=== PATIENT | female | born 1940 | race African-American/Black ===

== ENCOUNTER 2022-09-17 17:17 | Inpatient (IN) | payer MEDICARE, BC ==
[~2022-09-17] VITALS: Ht 137.2 cm; Wt 70.8 kg
[2022-09-17] VITALS (11 sets, daily range): BP systolic 117–164; BP diastolic 55–136
[2022-09-17] MEDS ORDERED: PANTOPRAZOLE SODIUM 40 MG/VIAL IV ONE (17:45)
[2022-09-17] MEDS ORDERED: ONDANSETRON HCL 4MG/2ML INJ IV ONE (17:45)
[2022-09-17] MEDS ORDERED: SODIUM CHLORIDE 0.9% 1,000 ML IV ONE (18:15)
[2022-09-17] MEDS ORDERED: IOHEXOL-350 100 ML BOTTLE ONE (18:44)
[2022-09-17 18:47] LABS: BASOPHILS % 0.6 % (0.0-2.0); EOSINOPHILS % 2.3 % (0.0-5.0); HEMATOCRIT. 29.1 % (36.0-48.0); HEMOGLOBIN. 9.5 g/dL (12.0-16.0); LYMPHOCYTES % 31.5 % (20.0-50.0); MEAN CORPUSCULAR HEMOGLOBIN 29.9 pg (28.0-32.0); MEAN CORPUSCULAR VOLUME 91.4 fL (81.0-99.0); MEAN PLATELET VOLUME 8.5 fl (7.4-10.4); MONOCYTES % 7.2 % (2.0-8.0); NEUTROPHILS % 58.4 % (40.0-76.0); PLATELET 141 x1000/uL (130-400); RED BLOOD CELL COUNT 3.19 mill/uL (4.2-5.4); RED CELL DISTRIBUTION WIDTH 14.7 % (11.6-14.6)
[2022-09-17 18:55] LABS: PROTHROMBIN TIME 10.8 sec (9.6-11.0)
[2022-09-17 18:56] LABS: CHLORIDE 111 mEq/L (98-107)
[2022-09-17 19:12] LABS: CREATINE KINASE 126 IU/L (26-192); ETHANOL BLOOD < 10 mg/dL
[2022-09-17] MEDS ORDERED: MANNITOL 20% (20GM/100ML) BAG 500ML PREMIX IV ONE (19:15)
[2022-09-17] MEDS ORDERED: LEVETIRACETAM 500 MG in SODIUM CHLORIDE 0.9% 100 ML IV SCH (19:15)
[2022-09-17] MEDS ORDERED: NICARDIPINE 100 MG in SODIUM CHLORIDE 0.9% 60 ML IV PRN (19:15)
[2022-09-17] MEDS: LEVETIRACETAM 500MG PREMIX 100 ML IV SCH (19:57)
[2022-09-17] MEDS ORDERED: MANNITOL 20% 200 ML IV NR (20:30)
[2022-09-17] MEDS ORDERED: ACETAMINOPHEN 650MG SUPP PR PRN ×2 (21:00)
[2022-09-17] MEDS ORDERED: IPRATROPIUM/ALBUTEROL 0.5-3(2.5)MG/3ML NEB NEB SCH (21:00)
[2022-09-17] MEDS ORDERED: IPRATROPIUM/ALBUTEROL 0.5-3(2.5)MG/3ML NEB NEB PRN (21:00)
[2022-09-17] MEDS ORDERED: NALOXONE HCL 0.4MG/ML VIAL IV PRN (21:15)
[2022-09-17] MEDS: NICARDIPINE 100 MG in SODIUM CHLORIDE 0.9% 60 ML IV PRN (22:30)
[2022-09-17] MEDS: DEXT 5%/LACTATED RINGERS 1,000 ML IV SCH (22:46)
[2022-09-17] MEDS: DEXAMETHASONE 4MG/ML 1ML VIAL IV SCH (23:14)
[2022-09-18] VITALS (78 sets, daily range): BP systolic 94–152; BP diastolic 28–84
[2022-09-18] MEDS: MORPHINE SULFATE 2 MG/ML CPJ (NOT FOR IM USE) IV PRN (02:02)
[2022-09-18 05:09] LABS: BASOPHILS % 0.1 % (0.0-2.0); CHLORIDE 101 mEq/L (98-107); HEMATOCRIT. 31.4 % (36.0-48.0); HEMOGLOBIN. 10.3 g/dL (12.0-16.0); LYMPHOCYTES % 9.7 % (20.0-50.0); MEAN CORPUSCULAR VOLUME 91.8 fL (81.0-99.0); MEAN PLATELET VOLUME 8.4 fl (7.4-10.4); MONOCYTES % 1.6 % (2.0-8.0); NEUTROPHILS % 88.6 % (40.0-76.0); PLATELET 144 x1000/uL (130-400); RED BLOOD CELL COUNT 3.42 mill/uL (4.2-5.4); RED CELL DISTRIBUTION WIDTH 14.4 % (11.6-14.6)
[2022-09-18 05:19] LABS: CREATINE KINASE 192 IU/L (26-192); HDL CHOLESTEROL 41 mg/dL (40-59); LDL CHOLESTEROL 105 mg/dL (5-100)
[2022-09-18] MEDS: DEXAMETHASONE 4MG/ML 1ML VIAL IV SCH ×3 (05:37→17:42)
[2022-09-18] MEDS ORDERED: POTASSIUM CHLORIDE INJ 40 MEQ in DEXT 5% WATER 250 ML IV ONE (07:15)
[2022-09-18] MEDS: KCL 20MEQ/100ML X 2 FOR TOTAL KCL 40MEQ/200ML IV SCH ×2 (09:27→12:13)
[2022-09-18] MEDS: LEVETIRACETAM 500MG PREMIX 100 ML IV SCH ×2 (09:27→20:23)
[2022-09-18] MEDS: DEXT 5%/LACTATED RINGERS 1,000 ML IV SCH (12:14)
[2022-09-19] VITALS (78 sets, daily range): BP systolic 120–164; BP diastolic 48–121
[2022-09-19] MEDS: DEXAMETHASONE 4MG/ML 1ML VIAL IV SCH ×4 (00:29→17:55)
[2022-09-19 05:09] LABS: CANCER ANTIGEN 125 10.3 U/mL (0.0-38.1)
[2022-09-19 05:15] LABS: BASOPHILS % 0.1 % (0.0-2.0); HEMATOCRIT. 30.2 % (36.0-48.0); HEMOGLOBIN. 9.9 g/dL (12.0-16.0); LYMPHOCYTES % 12.9 % (20.0-50.0); MEAN CORPUSCULAR HEMOGLOBIN 30.1 pg (28.0-32.0); MEAN CORPUSCULAR VOLUME 91.9 fL (81.0-99.0); MEAN PLATELET VOLUME 8.3 fl (7.4-10.4); MONOCYTES % 3.7 % (2.0-8.0); NEUTROPHILS % 83.3 % (40.0-76.0); PLATELET 135 x1000/uL (130-400); RED BLOOD CELL COUNT 3.29 mill/uL (4.2-5.4); RED CELL DISTRIBUTION WIDTH 14.3 % (11.6-14.6)
[2022-09-19 05:32] LABS: CHLORIDE 107 mEq/L (98-107)
[2022-09-19] MEDS: DEXT 5%/LACTATED RINGERS 1,000 ML IV SCH ×2 (06:55→21:23)
[2022-09-19] MEDS: LEVETIRACETAM 500MG PREMIX 100 ML IV SCH ×2 (08:12→21:23)
[2022-09-19] MEDS ORDERED: LOSA100T32 PO (09:43)
[2022-09-19] MEDS ORDERED: CARV25TA47 PO (09:43)
[2022-09-19] MEDS ORDERED: LEVO100T MT (09:43)
[2022-09-19] MEDS ORDERED: HYDR25TA PO (09:43)
[2022-09-19] MEDS ORDERED: HYDR100T26 PO (09:43)
[2022-09-19] MEDS ORDERED: ASPI-986 MT (09:43)
[2022-09-19] MEDS ORDERED: ATOR10TA69 PO (09:43)
[2022-09-19] MEDS: HYDRALAZINE 20MG/ML VIAL IV PRN (15:13)
[2022-09-19] MEDS: NICARDIPINE 100 MG in SODIUM CHLORIDE 0.9% 60 ML IV PRN (17:56)
[2022-09-19] MEDS: ATORVASTATIN CALCIUM 10MG TABLET PO SCH (20:07)
[2022-09-19] MEDS: ONDANSETRON HCL 4MG/2ML INJ IV PRN (21:23)
[2022-09-20] VITALS (79 sets, daily range): BP systolic 104–150; BP diastolic 34–109
[2022-09-20 05:17] LABS: CHLORIDE 110 mEq/L (98-107)
[2022-09-20 05:21] LABS: BASOPHILS % 0.1 % (0.0-2.0); HEMATOCRIT. 32.9 % (36.0-48.0); HEMOGLOBIN. 10.7 g/dL (12.0-16.0); LYMPHOCYTES % 9.2 % (20.0-50.0); MEAN CORPUSCULAR HEMOGLOBIN 29.7 pg (28.0-32.0); MEAN CORPUSCULAR VOLUME 91.5 fL (81.0-99.0); MONOCYTES % 5.4 % (2.0-8.0); NEUTROPHILS % 85.3 % (40.0-76.0); RED BLOOD CELL COUNT 3.59 mill/uL (4.2-5.4); RED CELL DISTRIBUTION WIDTH 14.6 % (11.6-14.6)
[2022-09-20] MEDS: DEXAMETHASONE 4MG/ML 1ML VIAL IV SCH ×5 (06:29→23:24)
[2022-09-20 07:12] LABS: MEAN PLATELET VOLUME 8.9 fl (7.4-10.4); PLATELET 149 x1000/uL (130-400)
[2022-09-20] MEDS: LEVETIRACETAM 500MG PREMIX 100 ML IV SCH ×2 (08:03→20:23)
[2022-09-20] MEDS: AMLODIPINE 5MG TABLET PO SCH (12:30)
[2022-09-20] MEDS ORDERED: MAGNESIUM 2 G PREMIX 50 ML IV NR (14:00)
[2022-09-20] MEDS: HYDRALAZINE 20MG/ML VIAL IV PRN (17:17)
[2022-09-20] MEDS: ATORVASTATIN CALCIUM 10MG TABLET PO SCH (20:23)
[2022-09-21] VITALS (77 sets, daily range): BP systolic 117–164; BP diastolic 39–94
[2022-09-21] MEDS: HYDRALAZINE 20MG/ML VIAL IV PRN ×2 (00:16→23:25)
[2022-09-21] MEDS: DEXAMETHASONE 4MG/ML 1ML VIAL IV SCH ×4 (05:32→23:25)
[2022-09-21 05:46] LABS: HEMATOCRIT. 31.4 % (36.0-48.0); HEMOGLOBIN. 10.4 g/dL (12.0-16.0); MEAN CORPUSCULAR HEMOGLOBIN 30.2 pg (28.0-32.0); MEAN CORPUSCULAR VOLUME 90.9 fL (81.0-99.0); MEAN PLATELET VOLUME 8.5 fl (7.4-10.4); PLATELET 134 x1000/uL (130-400); RED BLOOD CELL COUNT 3.45 mill/uL (4.2-5.4); RED CELL DISTRIBUTION WIDTH 14.7 % (11.6-14.6)
[2022-09-21 05:58] LABS: CHLORIDE 109 mEq/L (98-107)
[2022-09-21 07:51] LABS: PLATELET ESTIMATE NORMAL
[2022-09-21] MEDS: LEVETIRACETAM 500MG PREMIX 100 ML IV SCH ×2 (08:24→20:19)
[2022-09-21] MEDS: AMLODIPINE 5MG TABLET PO SCH (08:24)
[2022-09-21] MEDS: ATORVASTATIN CALCIUM 10MG TABLET PO SCH (20:18)
[2022-09-22] VITALS (84 sets, daily range): BP systolic 105–167; BP diastolic 50–89
[2022-09-22] MEDS: NICARDIPINE 100 MG in SODIUM CHLORIDE 0.9% 60 ML IV PRN (04:33)
[2022-09-22 04:51] LABS: HEMATOCRIT. 31.9 % (36.0-48.0); HEMOGLOBIN. 10.6 g/dL (12.0-16.0); MEAN CORPUSCULAR HEMOGLOBIN 30.2 pg (28.0-32.0); MEAN CORPUSCULAR VOLUME 90.4 fL (81.0-99.0); MEAN PLATELET VOLUME 8.2 fl (7.4-10.4); MONOCYTES % 10.4 % (2.0-8.0); NEUTROPHILS % 79.6 % (40.0-76.0); PLATELET 131 x1000/uL (130-400); RED BLOOD CELL COUNT 3.53 mill/uL (4.2-5.4); RED CELL DISTRIBUTION WIDTH 14.8 % (11.6-14.6)
[2022-09-22 05:05] LABS: CHLORIDE 105 mEq/L (98-107)
[2022-09-22] MEDS: MORPHINE SULFATE 2 MG/ML CPJ (NOT FOR IM USE) IV PRN (05:09)
[2022-09-22] MEDS: DEXAMETHASONE 4MG/ML 1ML VIAL IV SCH ×3 (05:39→17:05)
[2022-09-22] MEDS: LEVETIRACETAM 500MG PREMIX 100 ML IV SCH ×2 (08:57→20:58)
[2022-09-22] MEDS: AMLODIPINE 5MG TABLET PO SCH ×2 (08:58→17:04)
[2022-09-22] MEDS ORDERED: HYDRALAZINE HCL 50MG TABLET PO NR (10:30)
[2022-09-22 11:56] LABS: AMYLASE 762 IU/L (25-115)
[2022-09-22] MEDS ORDERED: LOSARTAN POTASSIUM 50 MG TABLET PO NR (12:00)
[2022-09-22] MEDS ORDERED: HYDRALAZINE HCL 50MG TABLET PO SCH (14:00)
[2022-09-22] MEDS: HYDRALAZINE HCL 50MG TABLET PO SCH ×2 (14:13→21:13)
[2022-09-22] MEDS ORDERED: GADOTERATE MEGLUMINE 5 MMOL/10 ML VIAL IV ONE (17:33)
[2022-09-22 19:23] LABS: T4 FREE 0.65 ng/dL (0.76-1.46)
[2022-09-22 20:10] LABS: FOLIC ACID (FOLATE) SERUM 18.2 ng/mL (>5.38)
[2022-09-22] MEDS: ATORVASTATIN CALCIUM 10MG TABLET PO SCH (20:58)
[2022-09-22] MEDS: LOSARTAN POTASSIUM 50 MG TABLET PO SCH (21:12)
[2022-09-23] VITALS (7 sets, daily range): BP systolic 120–143; BP diastolic 63–72
[2022-09-23] MEDS: DEXAMETHASONE 4MG/ML 1ML VIAL IV SCH ×4 (00:06→17:33)
[2022-09-23] MEDS: HYDRALAZINE 20MG/ML VIAL IV PRN (02:17)
[2022-09-23] MEDS: HYDRALAZINE HCL 50MG TABLET PO SCH ×3 (05:40→21:32)
[2022-09-23 07:13] LABS: BASOPHILS % 0.1 % (0.0-2.0); HEMATOCRIT. 33.1 % (36.0-48.0); HEMOGLOBIN. 10.9 g/dL (12.0-16.0); LYMPHOCYTES % 8.2 % (20.0-50.0); MEAN CORPUSCULAR HEMOGLOBIN 29.7 pg (28.0-32.0); MEAN CORPUSCULAR VOLUME 90.2 fL (81.0-99.0); MEAN PLATELET VOLUME 8.1 fl (7.4-10.4); MONOCYTES % 5.5 % (2.0-8.0); NEUTROPHILS % 86.2 % (40.0-76.0); PLATELET 136 x1000/uL (130-400); RED BLOOD CELL COUNT 3.67 mill/uL (4.2-5.4); RED CELL DISTRIBUTION WIDTH 14.6 % (11.6-14.6)
[2022-09-23 08:35] LABS: CHLORIDE 107 mEq/L (98-107)
[2022-09-23 08:58] LABS: AMYLASE 448 IU/L (25-115)
[2022-09-23] MEDS: LOSARTAN POTASSIUM 50 MG TABLET PO SCH ×2 (08:58→17:33)
[2022-09-23] MEDS: LEVETIRACETAM 500MG PREMIX 100 ML IV SCH ×2 (08:58→21:32)
[2022-09-23] MEDS: AMLODIPINE 5MG TABLET PO SCH ×2 (08:59→17:34)
[2022-09-23] MEDS: ONDANSETRON HCL 4MG/2ML INJ IV PRN (09:36)
[2022-09-23 15:29] LABS: HEPATITIS B SURFACE ANTIGEN NEGATIVE
[2022-09-23] MEDS: ATORVASTATIN CALCIUM 10MG TABLET PO SCH (21:32)
== END 2022-09-23 22:06 | DRG 64 ==
LOC: ER 17:25 → EDBD 17:25 → MICUSO 19:00 → EDBEDREQTM 19:02 → EDBEDREQ 19:02 → 7EST 09-22 21:55
PROVIDERS: ADMIT Family Medicine Adult Medicine; ATTEND Family Medicine Adult Medicine
PROC: 4A00X4Z Measurement of Central Nervous Electrical Activity, External Approach (ICD-10-PCS; principal; 2022-09-23)
DX: I61.0 Nontraumatic intracerebral hemorrhage in hemisphere, subcortical (principal); G92.8 Other toxic encephalopathy; R47.01 Aphasia; G47.33 Obstructive sleep apnea (adult) (pediatric); J45.909 Unspecified asthma, uncomplicated; K86.9 Disease of pancreas, unspecified; D72.829 Elevated white blood cell count, unspecified; E78.5 Hyperlipidemia, unspecified; E78.00 Pure hypercholesterolemia, unspecified; D64.9 Anemia, unspecified; R47.1 Dysarthria and anarthria; I12.9 Hypertensive chronic kidney disease with stage 1 through stage 4 chronic kidney disease, or unspecified chronic kidney disease; E11.22 Type 2 diabetes mellitus with diabetic chronic kidney disease; N18.9 Chronic kidney disease, unspecified; E66.9 Obesity, unspecified; E89.0 Postprocedural hypothyroidism; I25.10 Atherosclerotic heart disease of native coronary artery without angina pectoris; R13.10 Dysphagia, unspecified; Z96.653 Presence of artificial knee joint, bilateral; M19.90 Unspecified osteoarthritis, unspecified site; R16.0 Hepatomegaly, not elsewhere classified; Z68.37 Body mass index [BMI] 37.0-37.9, adult; Z86.73 Personal history of transient ischemic attack (TIA), and cerebral infarction without residual deficits; Z79.899 Other long term (current) drug therapy; Z99.2 Dependence on renal dialysis; Z82.49 Family history of ischemic heart disease and other diseases of the circulatory system
CPT/HCPCS: 36415; 70496; 70498; 71045; 74176; 74183; 76700; 80048; 80053; 80061; 80076; 80307; 80320; 80329; 82105; 82140; 82150; 82378; 82550; 82607; 82746; 82962; 83036; 83605; 83615; 83735; 83880; 84439; 84443; 84478; 84481; 84484; 85025; 86301; 86304; 86705; 86709; 86803; 86850; 86900; 87340; 92610; 93005; 93306; 97110; 97162; 97166; 97530; 99291; A9577; C9113; J0360; J1100; J1953; J2270; J2405; J3475; J3480; J3490; J7030; J7050; Q9967; A4315; G0480

== ENCOUNTER 2022-11-20 19:28 | Inpatient (IN) | payer MEDICARE, BC, OTHER ==
[~2022-11-20] VITALS: Ht 137.2 cm; Wt 68.0 kg
[~2022-11-20 19:28] MED LIST: ATOR10TA69 PO; HYDR25TA PO
[2022-11-20 20:02] LABS: BASOPHILS % 0.5 % (0.0-2.0); EOSINOPHILS % 3.9 % (0.0-5.0); HEMATOCRIT. 32.4 % (36.0-48.0); HEMOGLOBIN. 10.5 g/dL (12.0-16.0); LYMPHOCYTES % 36.8 % (20.0-50.0); MEAN CORPUSCULAR VOLUME 88.9 fL (81.0-99.0); MEAN PLATELET VOLUME 7.5 fl (7.4-10.4); MONOCYTES % 7.4 % (2.0-8.0); NEUTROPHILS % 51.4 % (40.0-76.0); PLATELET 198 x1000/uL (130-400); RED BLOOD CELL COUNT 3.64 mill/uL (4.2-5.4); RED CELL DISTRIBUTION WIDTH 15.3 % (11.6-14.6)
[2022-11-20 20:10] LABS: PROTHROMBIN TIME 10.9 sec (9.6-11.0)
[2022-11-20 20:11] LABS: CHLORIDE 110 mEq/L (98-107)
[2022-11-20] MEDS ORDERED: THROAT LOZENGES-BENZOCAINE/MENTH/CETYLPYRD CL LOZENGES MM PRN (20:15)
[2022-11-20 20:18] LABS: ETHANOL BLOOD < 10 mg/dL
[2022-11-20] MEDS ORDERED: ASPIRIN 325MG TABLET PO ONE (21:30)
[2022-11-20 23:40] VITALS: BP_SYST 169; BP_DIAS 92; BP_DIAS 98
[2022-11-21] MEDS ORDERED: CLONIDINE 0.1MG TABLET PO PRN (03:45)
[2022-11-21] MEDS ORDERED: HYDROCODONE/ACETAMINOPHEN 5/325MG TABLET PO PRN (03:45)
[2022-11-21 04:00] VITALS: BP 149/68
[2022-11-21] MEDS ORDERED: LEVO125T8 PO (04:29)
[2022-11-21] MEDS ORDERED: MAGN400T29 PO (04:29)
[2022-11-21] MEDS ORDERED: FAMO-135 PO (04:29)
[2022-11-21] MEDS ORDERED: KEPP250 MT (04:29)
[2022-11-21] MEDS ORDERED: LOSA25TA26 PO (04:29)
[2022-11-21] MEDS ORDERED: ASPI-1073 PO (04:29)
[2022-11-21] MEDS ORDERED: DOCU-138 PO (04:29)
[2022-11-21] MEDS ORDERED: FERR-71 MT (04:29)
[2022-11-21] MEDS ORDERED: ATEN-42 PO (04:29)
[2022-11-21] MEDS ORDERED: NALOXONE HCL 0.4MG/ML VIAL IV PRN (07:30)
[2022-11-21 08:00] VITALS: BP 164/78
[2022-11-21] MEDS ORDERED: ENOXAPARIN 40MG/0.4ML SYR SUBCUT SCH (08:00)
[2022-11-21 09:28] LABS: HEMATOCRIT 31.9 % (36.0-48.0); HEMOGLOBIN 10.6 g/dL (12.0-16.0); MEAN CORPUSCULAR HEMOGLOBIN 28.7 pg (28.0-32.0); MEAN CORPUSCULAR VOLUME 86.8 fL (81.0-99.0); PLATELET 190 x1000/uL (130-400); RED BLOOD CELL COUNT 3.68 mill/uL (4.2-5.4); RED CELL DISTRIBUTION WIDTH 14.7 % (11.6-14.6)
[2022-11-21] MEDS: FAMOTIDINE 20MG TABLET PO SCH (09:35)
[2022-11-21] MEDS: ASPIRIN 81MG TABLET PO SCH (09:35)
[2022-11-21] MEDS: HYDROCHLOROTHIAZIDE 25MG TABLET PO SCH (09:35)
[2022-11-21] MEDS: FERROUS SULFATE 325MG TABLET PO SCH ×2 (09:35→16:58)
[2022-11-21] MEDS: DOCUSATE SODIUM 100MG CAPSULE PO SCH ×2 (09:35→16:58)
[2022-11-21] MEDS: LEVOTHYROXINE SODIUM 125MCG TABLET PO SCH (09:35)
[2022-11-21] MEDS: LOSARTAN POTASSIUM 25 MG TABLET PO SCH (09:35)
[2022-11-21] MEDS: MAGNESIUM OXIDE 400MG TABLET PO SCH (09:36)
[2022-11-21] MEDS: LEVETIRACETAM 250MG TABLET PO SCH ×2 (09:36→22:04)
[2022-11-21] MEDS: ATENOLOL 25MG TABLET PO SCH (09:38)
[2022-11-21 09:41] LABS: CHLORIDE 107 mEq/L (98-107)
[2022-11-21 12:00] VITALS: BP 153/71
[2022-11-21] MEDS ORDERED: IOHEXOL-350 100 ML BOTTLE ONE (16:23)
[2022-11-21] MEDS: ENOXAPARIN 60MG/0.6ML SYR SUBCUT SCH ×2 (16:59→22:06)
[2022-11-21 20:00] VITALS: BP 149/70
[2022-11-21] MEDS: ATORVASTATIN CALCIUM 10MG TABLET PO SCH (22:04)
[2022-11-22] VITALS: BP 128/81
[2022-11-22 04:00] VITALS: BP 152/66
[2022-11-22] MEDS: LEVOTHYROXINE SODIUM 125MCG TABLET PO SCH (05:41)
[2022-11-22 08:00] VITALS: BP 163/73
[2022-11-22 08:09] LABS: BASOPHILS % 0.6 % (0.0-2.0); EOSINOPHILS % 4.1 % (0.0-5.0); HEMATOCRIT. 34.8 % (36.0-48.0); HEMOGLOBIN. 11.5 g/dL (12.0-16.0); LYMPHOCYTES % 35.6 % (20.0-50.0); MEAN CORPUSCULAR HEMOGLOBIN 28.8 pg (28.0-32.0); MEAN CORPUSCULAR VOLUME 86.9 fL (81.0-99.0); MEAN PLATELET VOLUME 7.9 fl (7.4-10.4); MONOCYTES % 8.5 % (2.0-8.0); NEUTROPHILS % 51.2 % (40.0-76.0); PLATELET 189 x1000/uL (130-400); RED CELL DISTRIBUTION WIDTH 14.9 % (11.6-14.6)
[2022-11-22] MEDS: ATENOLOL 25MG TABLET PO SCH (09:27)
[2022-11-22] MEDS: FERROUS SULFATE 325MG TABLET PO SCH ×2 (09:27→17:59)
[2022-11-22] MEDS: DOCUSATE SODIUM 100MG CAPSULE PO SCH ×2 (09:27→17:59)
[2022-11-22] MEDS: FAMOTIDINE 20MG TABLET PO SCH (09:27)
[2022-11-22] MEDS: LOSARTAN POTASSIUM 25 MG TABLET PO SCH (09:27)
[2022-11-22] MEDS: ASPIRIN 81MG TABLET PO SCH (09:28)
[2022-11-22] MEDS: HYDROCHLOROTHIAZIDE 25MG TABLET PO SCH (09:28)
[2022-11-22] MEDS: MAGNESIUM OXIDE 400MG TABLET PO SCH (09:29)
[2022-11-22] MEDS: LEVETIRACETAM 250MG TABLET PO SCH ×2 (09:31→22:12)
[2022-11-22 09:36] LABS: CHLORIDE 103 mEq/L (98-107)
[2022-11-22] MEDS: ENOXAPARIN 60MG/0.6ML SYR SUBCUT SCH (11:49)
[2022-11-22 12:00] VITALS: BP 170/71
[2022-11-22 16:00] VITALS: BP 117/57
[2022-11-22 20:00] VITALS: BP 152/79
[2022-11-22] MEDS: ATORVASTATIN CALCIUM 10MG TABLET PO SCH (22:12)
[2022-11-22] MEDS: ENOXAPARIN 80MG/0.8ML SYR SUBCUT SCH (22:12)
[2022-11-23] VITALS: BP 129/88
[2022-11-23 04:00] VITALS: BP 148/60
[2022-11-23 06:34] LABS: BASOPHILS % 0.8 % (0.0-2.0); EOSINOPHILS % 4.7 % (0.0-5.0); HEMATOCRIT. 31.6 % (36.0-48.0); HEMOGLOBIN. 10.6 g/dL (12.0-16.0); LYMPHOCYTES % 39.7 % (20.0-50.0); MEAN CORPUSCULAR HEMOGLOBIN 28.7 pg (28.0-32.0); MEAN CORPUSCULAR VOLUME 85.8 fL (81.0-99.0); MEAN PLATELET VOLUME 8.1 fl (7.4-10.4); MONOCYTES % 7.7 % (2.0-8.0); NEUTROPHILS % 47.1 % (40.0-76.0); PLATELET 189 x1000/uL (130-400); RED BLOOD CELL COUNT 3.68 mill/uL (4.2-5.4)
[2022-11-23] MEDS: LEVOTHYROXINE SODIUM 125MCG TABLET PO SCH (06:47)
[2022-11-23 07:06] LABS: CHLORIDE 102 mEq/L (98-107)
[2022-11-23 08:00] VITALS: BP 169/79
[2022-11-23] MEDS: LOSARTAN POTASSIUM 25 MG TABLET PO SCH (08:23)
[2022-11-23] MEDS: FERROUS SULFATE 325MG TABLET PO SCH ×2 (08:23→18:16)
[2022-11-23] MEDS: ASPIRIN 81MG TABLET PO SCH (08:23)
[2022-11-23] MEDS: HYDROCHLOROTHIAZIDE 25MG TABLET PO SCH (08:23)
[2022-11-23] MEDS: DOCUSATE SODIUM 100MG CAPSULE PO SCH ×2 (08:23→18:16)
[2022-11-23] MEDS: LEVETIRACETAM 250MG TABLET PO SCH ×2 (08:23→21:59)
[2022-11-23] MEDS: MAGNESIUM OXIDE 400MG TABLET PO SCH (08:24)
[2022-11-23] MEDS: ATENOLOL 25MG TABLET PO SCH (08:29)
[2022-11-23] MEDS: FAMOTIDINE 20MG TABLET PO SCH (08:29)
[2022-11-23] MEDS: ENOXAPARIN 80MG/0.8ML SYR SUBCUT SCH ×2 (08:30→21:59)
[2022-11-23] MEDS ORDERED: POTASSIUM CHLORIDE 20MEQ TABLET SR PO NR (09:15)
[2022-11-23] MEDS ORDERED: COLCHICINE 0.6MG TABLET PO NR (11:30)
[2022-11-23 12:00] VITALS: BP 127/58
[2022-11-23 16:00] VITALS: BP 131/65
[2022-11-23] MEDS: COLCHICINE 0.6MG TABLET PO SCH (18:16)
[2022-11-23 20:00] VITALS: BP 149/69
[2022-11-23] MEDS: ATORVASTATIN CALCIUM 10MG TABLET PO SCH (21:59)
[2022-11-24] VITALS: BP_SYST 124; BP_SYST 126; BP_DIAS 76
[2022-11-24 04:00] VITALS: BP 158/79
[2022-11-24 05:49] LABS: BASOPHILS % 0.7 % (0.0-2.0); EOSINOPHILS % 4.6 % (0.0-5.0); HEMATOCRIT. 34.7 % (36.0-48.0); HEMOGLOBIN. 11.7 g/dL (12.0-16.0); LYMPHOCYTES % 40.8 % (20.0-50.0); MEAN CORPUSCULAR HEMOGLOBIN 28.9 pg (28.0-32.0); MEAN CORPUSCULAR VOLUME 86.2 fL (81.0-99.0); MEAN PLATELET VOLUME 8.3 fl (7.4-10.4); MONOCYTES % 8.5 % (2.0-8.0); NEUTROPHILS % 45.4 % (40.0-76.0); PLATELET 206 x1000/uL (130-400); RED BLOOD CELL COUNT 4.03 mill/uL (4.2-5.4); RED CELL DISTRIBUTION WIDTH 14.7 % (11.6-14.6)
[2022-11-24] MEDS: LEVOTHYROXINE SODIUM 125MCG TABLET PO SCH (06:03)
[2022-11-24 07:29] LABS: CHLORIDE 103 mEq/L (98-107)
[2022-11-24 08:00] VITALS: BP 128/70
[2022-11-24] MEDS: LEVETIRACETAM 250MG TABLET PO SCH ×2 (10:00→21:31)
[2022-11-24] MEDS: FERROUS SULFATE 325MG TABLET PO SCH ×2 (10:00→17:44)
[2022-11-24] MEDS: ENOXAPARIN 80MG/0.8ML SYR SUBCUT SCH ×2 (10:00→21:31)
[2022-11-24] MEDS: DOCUSATE SODIUM 100MG CAPSULE PO SCH ×2 (10:01→17:44)
[2022-11-24] MEDS: LOSARTAN POTASSIUM 50 MG TABLET PO SCH (10:01)
[2022-11-24] MEDS: ASPIRIN 81MG TABLET PO SCH (10:02)
[2022-11-24] MEDS: MAGNESIUM OXIDE 400MG TABLET PO SCH (10:03)
[2022-11-24] MEDS: FAMOTIDINE 20MG TABLET PO SCH (10:03)
[2022-11-24] MEDS: COLCHICINE 0.6MG TABLET PO SCH (10:03)
[2022-11-24] MEDS: HYDROCHLOROTHIAZIDE 25MG TABLET PO SCH (10:06)
[2022-11-24 12:00] VITALS: BP 140/75
[2022-11-24 16:00] VITALS: BP 123/86
[2022-11-24 20:00] VITALS: BP 132/75
[2022-11-24] MEDS: ATORVASTATIN CALCIUM 10MG TABLET PO SCH (21:31)
[2022-11-25] VITALS: BP 136/77
[2022-11-25 04:00] VITALS: BP 120/58
[2022-11-25] MEDS: LEVOTHYROXINE SODIUM 125MCG TABLET PO SCH (06:26)
[2022-11-25 06:31] LABS: BASOPHILS % 0.7 % (0.0-2.0); EOSINOPHILS % 3.4 % (0.0-5.0); HEMATOCRIT. 34.6 % (36.0-48.0); HEMOGLOBIN. 11.5 g/dL (12.0-16.0); LYMPHOCYTES % 42.7 % (20.0-50.0); MEAN CORPUSCULAR HEMOGLOBIN 28.7 pg (28.0-32.0); MEAN CORPUSCULAR VOLUME 86.4 fL (81.0-99.0); MEAN PLATELET VOLUME 8.1 fl (7.4-10.4); MONOCYTES % 8.2 % (2.0-8.0); PLATELET 211 x1000/uL (130-400); RED BLOOD CELL COUNT 4.01 mill/uL (4.2-5.4); RED CELL DISTRIBUTION WIDTH 14.8 % (11.6-14.6)
[2022-11-25 07:08] LABS: CHLORIDE 105 mEq/L (98-107)
[2022-11-25 08:00] VITALS: BP 140/73
[2022-11-25] MEDS: ENOXAPARIN 80MG/0.8ML SYR SUBCUT SCH ×2 (09:05→20:53)
[2022-11-25] MEDS: LOSARTAN POTASSIUM 50 MG TABLET PO SCH (09:07)
[2022-11-25] MEDS: HYDROCHLOROTHIAZIDE 25MG TABLET PO SCH (09:07)
[2022-11-25] MEDS: FAMOTIDINE 20MG TABLET PO SCH (09:07)
[2022-11-25] MEDS: COLCHICINE 0.6MG TABLET PO SCH (09:07)
[2022-11-25] MEDS: DOCUSATE SODIUM 100MG CAPSULE PO SCH ×2 (09:07→17:31)
[2022-11-25] MEDS: FERROUS SULFATE 325MG TABLET PO SCH ×2 (09:07→17:31)
[2022-11-25] MEDS: LEVETIRACETAM 250MG TABLET PO SCH ×2 (09:08→20:53)
[2022-11-25] MEDS: ASPIRIN 81MG TABLET PO SCH (09:08)
[2022-11-25] MEDS: MAGNESIUM OXIDE 400MG TABLET PO SCH (09:08)
[2022-11-25] MEDS ORDERED: POTASSIUM CHLORIDE 20MEQ/PACKET PO NR (10:30)
[2022-11-25 12:00] VITALS: BP 126/75
[2022-11-25 16:00] VITALS: BP 121/77
[2022-11-25 20:00] VITALS: BP 134/77
[2022-11-25] MEDS: ATORVASTATIN CALCIUM 10MG TABLET PO SCH (20:53)
[2022-11-26] VITALS: BP 109/70
[2022-11-26 04:00] VITALS: BP 131/72
[2022-11-26 05:08] LABS: CANCER ANTIGEN 125 12.9 U/mL (0.0-38.1)
[2022-11-26 05:34] LABS: BASOPHILS % 0.6 % (0.0-2.0); EOSINOPHILS % 3.8 % (0.0-5.0); HEMATOCRIT. 34.6 % (36.0-48.0); HEMOGLOBIN. 11.2 g/dL (12.0-16.0); LYMPHOCYTES % 42.8 % (20.0-50.0); MEAN CORPUSCULAR HEMOGLOBIN 28.4 pg (28.0-32.0); MEAN CORPUSCULAR VOLUME 87.5 fL (81.0-99.0); MONOCYTES % 9.9 % (2.0-8.0); NEUTROPHILS % 42.9 % (40.0-76.0); PLATELET 208 x1000/uL (130-400); RED BLOOD CELL COUNT 3.96 mill/uL (4.2-5.4); RED CELL DISTRIBUTION WIDTH 15.1 % (11.6-14.6)
[2022-11-26] MEDS: LEVOTHYROXINE SODIUM 125MCG TABLET PO SCH (05:43)
[2022-11-26 05:45] LABS: CHLORIDE 105 mEq/L (98-107)
[2022-11-26 08:00] VITALS: BP 106/82
[2022-11-26] MEDS: MAGNESIUM OXIDE 400MG TABLET PO SCH (09:00)
[2022-11-26] MEDS: LOSARTAN POTASSIUM 50 MG TABLET PO SCH (09:00)
[2022-11-26 12:00] VITALS: BP 112/63
[2022-11-26] MEDS: ENOXAPARIN 80MG/0.8ML SYR SUBCUT SCH ×2 (12:35→22:32)
[2022-11-26] MEDS: COLCHICINE 0.6MG TABLET PO SCH (12:35)
[2022-11-26] MEDS: FERROUS SULFATE 325MG TABLET PO SCH ×2 (12:35→17:00)
[2022-11-26] MEDS: HYDROCHLOROTHIAZIDE 25MG TABLET PO SCH (12:35)
[2022-11-26] MEDS: LEVETIRACETAM 250MG TABLET PO SCH (12:35)
[2022-11-26] MEDS: DOCUSATE SODIUM 100MG CAPSULE PO SCH ×2 (12:35→17:00)
[2022-11-26] MEDS: ASPIRIN 81MG TABLET PO SCH (12:36)
[2022-11-26] MEDS: FAMOTIDINE 20MG TABLET PO SCH (12:36)
[2022-11-26] MEDS: DEXT 5%/0.9% NACL 1,000 ML IV SCH (14:38)
[2022-11-26 16:00] VITALS: BP 110/72
[2022-11-26 20:00] VITALS: BP 122/65
[2022-11-26] MEDS ORDERED: HYDRALAZINE 20MG/ML VIAL IV PRN (20:45)
[2022-11-26] MEDS ORDERED: LEVETIRACETAM 500MG/5ML CUP PO SCH (21:00)
[2022-11-26] MEDS: ATORVASTATIN CALCIUM 10MG TABLET PO SCH (21:00)
[2022-11-26] MEDS: LEVETIRACETAM 250MG in SODIUM CHLORIDE 0.9% 100ML IV SCH (22:30)
[2022-11-27] VITALS: BP 109/70
[2022-11-27 04:00] VITALS: BP 141/84
[2022-11-27 06:18] LABS: PROTHROMBIN TIME 11.2 sec (9.6-11.0)
[2022-11-27 06:27] LABS: BASOPHILS % 0.8 % (0.0-2.0); EOSINOPHILS % 3.6 % (0.0-5.0); HEMATOCRIT. 32.8 % (36.0-48.0); HEMOGLOBIN. 10.8 g/dL (12.0-16.0); MEAN CORPUSCULAR HEMOGLOBIN 28.4 pg (28.0-32.0); MEAN CORPUSCULAR VOLUME 86.6 fL (81.0-99.0); MEAN PLATELET VOLUME 8.2 fl (7.4-10.4); MONOCYTES % 9.2 % (2.0-8.0); NEUTROPHILS % 39.4 % (40.0-76.0); PLATELET 214 x1000/uL (130-400); RED BLOOD CELL COUNT 3.78 mill/uL (4.2-5.4); RED CELL DISTRIBUTION WIDTH 15.1 % (11.6-14.6)
[2022-11-27] MEDS: DEXT 5%/0.9% NACL 1,000 ML IV SCH ×2 (06:44→23:28)
[2022-11-27 07:30] LABS: CHLORIDE 109 mEq/L (98-107)
[2022-11-27 08:00] VITALS: BP 140/61
[2022-11-27] MEDS: HYDROCHLOROTHIAZIDE 25MG TABLET PO SCH (09:00)
[2022-11-27] MEDS: MAGNESIUM OXIDE 400MG TABLET PO SCH (09:00)
[2022-11-27] MEDS: FERROUS SULFATE 325MG TABLET PO SCH ×2 (09:00→16:50)
[2022-11-27] MEDS: DOCUSATE SODIUM 100MG CAPSULE PO SCH ×2 (09:00→16:50)
[2022-11-27] MEDS: COLCHICINE 0.6MG TABLET PO SCH (09:00)
[2022-11-27] MEDS: LOSARTAN POTASSIUM 50 MG TABLET PO SCH (09:00)
[2022-11-27] MEDS: LEVETIRACETAM 250MG in SODIUM CHLORIDE 0.9% 100ML IV SCH ×2 (09:29→20:54)
[2022-11-27] MEDS: ENOXAPARIN 80MG/0.8ML SYR SUBCUT SCH (09:30)
[2022-11-27] MEDS: FAMOTIDINE 20MG/2ML VIAL IV SCH (09:30)
[2022-11-27] MEDS: LEVOTHYROXINE SODIUM 100 MCG/ VIAL IV SCH (11:25)
[2022-11-27 12:00] VITALS: BP 134/80
[2022-11-27] MEDS ORDERED: KCL 20MEQ/100ML PREMIX 100 ML IV NR (12:30)
[2022-11-27 16:00] VITALS: BP 137/59
[2022-11-27 20:00] VITALS: BP 115/85
[2022-11-27] MEDS: ATORVASTATIN CALCIUM 10MG TABLET PO SCH (20:01)
[2022-11-28] VITALS: BP 139/65
[2022-11-28 04:00] VITALS: BP 136/67
[2022-11-28 06:43] LABS: PROTHROMBIN TIME 10.6 sec (9.6-11.0)
[2022-11-28 06:44] LABS: BASOPHILS % 0.7 % (0.0-2.0); EOSINOPHILS % 5.1 % (0.0-5.0); HEMATOCRIT. 35.3 % (36.0-48.0); HEMOGLOBIN. 11.1 g/dL (12.0-16.0); LYMPHOCYTES % 42.7 % (20.0-50.0); MEAN CORPUSCULAR HEMOGLOBIN 28.5 pg (28.0-32.0); MONOCYTES % 9.2 % (2.0-8.0); NEUTROPHILS % 42.3 % (40.0-76.0); PLATELET 207 x1000/uL (130-400); RED BLOOD CELL COUNT 3.92 mill/uL (4.2-5.4); RED CELL DISTRIBUTION WIDTH 15.1 % (11.6-14.6)
[2022-11-28 06:53] LABS: CHLORIDE 115 mEq/L (98-107)
[2022-11-28 08:00] VITALS: BP 152/95
[2022-11-28] MEDS: LEVOTHYROXINE SODIUM 100 MCG/ VIAL IV SCH (08:37)
[2022-11-28] MEDS: FAMOTIDINE 20MG/2ML VIAL IV SCH (08:37)
[2022-11-28] MEDS: LEVETIRACETAM 250MG in SODIUM CHLORIDE 0.9% 100ML IV SCH ×2 (08:37→21:22)
[2022-11-28] MEDS: DOCUSATE SODIUM 100MG CAPSULE PO SCH ×2 (08:55→16:34)
[2022-11-28] MEDS: HYDROCHLOROTHIAZIDE 25MG TABLET PO SCH (08:55)
[2022-11-28] MEDS: COLCHICINE 0.6MG TABLET PO SCH (08:55)
[2022-11-28] MEDS: LOSARTAN POTASSIUM 50 MG TABLET PO SCH (08:55)
[2022-11-28] MEDS: FERROUS SULFATE 325MG TABLET PO SCH ×2 (08:56→16:34)
[2022-11-28] MEDS: MAGNESIUM OXIDE 400MG TABLET PO SCH (08:56)
[2022-11-28 12:00] VITALS: BP 150/83
[2022-11-28] MEDS ORDERED: CEFAZOLIN 1000MG PREMIX 50 ML IV SCH (12:00)
[2022-11-28] MEDS ORDERED: POTASSIUM CHLORIDE INJ 40 MEQ in DEXT 5% WATER 250 ML IV NR (12:00)
[2022-11-28] MEDS ORDERED: PROPOFOL 200MG/20ML VIAL IV ONE (13:59)
[2022-11-28] MEDS ORDERED: EPHEDRINE SULFATE 50MG/ML VIAL ONE (13:59)
[2022-11-28] MEDS ORDERED: SODIUM CHLORIDE 0.9% 10ML VIAL ONE (14:00)
[2022-11-28] MEDS ORDERED: PHENYLEPHRINE HCL 10 MG/ML 1ML (IV VIAL) IV ONE (14:00)
[2022-11-28] MEDS ORDERED: LIDOCAINE HCL 1% 10 MG/ML 10ML VIAL ONE (14:50)
[2022-11-28 16:00] VITALS: BP 142/73
[2022-11-28] MEDS: DEXT 5%/0.9% NACL 1,000 ML IV SCH (16:13)
[2022-11-28 20:00] VITALS: BP 172/73
[2022-11-28] MEDS: ATORVASTATIN CALCIUM 10MG TABLET PO SCH (21:15)
[2022-11-29] VITALS: BP 136/80
[2022-11-29 04:00] VITALS: BP 122/71
[2022-11-29 05:39] LABS: BASOPHILS % 0.4 % (0.0-2.0); EOSINOPHILS % 2.3 % (0.0-5.0); HEMATOCRIT. 33.3 % (36.0-48.0); HEMOGLOBIN. 10.9 g/dL (12.0-16.0); LYMPHOCYTES % 27.8 % (20.0-50.0); MEAN CORPUSCULAR HEMOGLOBIN 28.2 pg (28.0-32.0); MEAN PLATELET VOLUME 7.9 fl (7.4-10.4); MONOCYTES % 8.1 % (2.0-8.0); NEUTROPHILS % 61.4 % (40.0-76.0); PLATELET 205 x1000/uL (130-400); RED BLOOD CELL COUNT 3.87 mill/uL (4.2-5.4); RED CELL DISTRIBUTION WIDTH 14.8 % (11.6-14.6)
[2022-11-29 06:07] LABS: CHLORIDE 112 mEq/L (98-107)
[2022-11-29 08:00] VITALS: BP 130/82
[2022-11-29] MEDS: LEVOTHYROXINE SODIUM 100 MCG/ VIAL IV SCH (08:58)
[2022-11-29] MEDS: LEVETIRACETAM 250MG in SODIUM CHLORIDE 0.9% 100ML IV SCH (08:58)
[2022-11-29] MEDS: HYDROCHLOROTHIAZIDE 25MG TABLET PO SCH (08:59)
[2022-11-29] MEDS: COLCHICINE 0.6MG TABLET PO SCH (08:59)
[2022-11-29] MEDS: MAGNESIUM OXIDE 400MG TABLET PO SCH (08:59)
[2022-11-29] MEDS: DEXT 5%/0.9% NACL 1,000 ML IV SCH (08:59)
[2022-11-29] MEDS: DOCUSATE SODIUM 100MG CAPSULE PO SCH (09:00)
[2022-11-29] MEDS: ASPIRIN 81MG TABLET PO SCH ×2 (09:00→10:36)
[2022-11-29] MEDS: LOSARTAN POTASSIUM 50 MG TABLET PO SCH (09:06)
[2022-11-29] MEDS: FERROUS SULFATE 325MG TABLET PO SCH ×2 (09:06→16:21)
[2022-11-29] MEDS: DOCUSATE SODIUM SUGAR FREE 100MG/10ML UDC GT SCH (10:36)
[2022-11-29] MEDS: ENOXAPARIN 80MG/0.8ML SYR SUBCUT SCH ×2 (10:36→22:03)
[2022-11-29 12:00] VITALS: BP 142/81
[2022-11-29 16:00] VITALS: BP 142/77
[2022-11-29 20:00] VITALS: BP 121/64
[2022-11-29] MEDS: LEVETIRACETAM 500MG/5ML CUP GT SCH (22:02)
[2022-11-29] MEDS: ATORVASTATIN CALCIUM 10MG TABLET PO SCH (22:03)
[2022-11-30] VITALS: BP 128/72
[2022-11-30 04:00] VITALS: BP 135/60
[2022-11-30 06:50] LABS: BASOPHILS % 0.7 % (0.0-2.0); EOSINOPHILS % 4.2 % (0.0-5.0); HEMATOCRIT. 32.5 % (36.0-48.0); HEMOGLOBIN. 10.4 g/dL (12.0-16.0); LYMPHOCYTES % 38.4 % (20.0-50.0); MEAN CORPUSCULAR HEMOGLOBIN 29.1 pg (28.0-32.0); MEAN CORPUSCULAR VOLUME 90.5 fL (81.0-99.0); MEAN PLATELET VOLUME 8.2 fl (7.4-10.4); MONOCYTES % 9.4 % (2.0-8.0); NEUTROPHILS % 47.3 % (40.0-76.0); PLATELET 183 x1000/uL (130-400); RED BLOOD CELL COUNT 3.59 mill/uL (4.2-5.4); RED CELL DISTRIBUTION WIDTH 15.3 % (11.6-14.6)
[2022-11-30 06:59] LABS: CHLORIDE 111 mEq/L (98-107)
[2022-11-30 08:00] VITALS: BP 147/71
[2022-11-30] MEDS: ASPIRIN 81MG TABLET PO SCH (08:33)
[2022-11-30] MEDS: LEVETIRACETAM 500MG/5ML CUP GT SCH ×2 (08:33→21:37)
[2022-11-30] MEDS: DOCUSATE SODIUM SUGAR FREE 100MG/10ML UDC GT SCH (08:33)
[2022-11-30] MEDS: FERROUS SULFATE 325MG TABLET PO SCH ×2 (08:33→16:51)
[2022-11-30] MEDS: COLCHICINE 0.6MG TABLET PO SCH (08:33)
[2022-11-30] MEDS: ENOXAPARIN 80MG/0.8ML SYR SUBCUT SCH ×2 (08:33→21:38)
[2022-11-30] MEDS: HYDROCHLOROTHIAZIDE 25MG TABLET PO SCH (08:34)
[2022-11-30] MEDS: LOSARTAN POTASSIUM 50 MG TABLET PO SCH (08:34)
[2022-11-30] MEDS: MAGNESIUM OXIDE 400MG TABLET PO SCH (08:34)
[2022-11-30] MEDS: LEVOTHYROXINE SODIUM 100 MCG/ VIAL IV SCH (08:35)
[2022-11-30] MEDS: DEXT 5%/0.9% NACL 1,000 ML IV SCH (08:36)
[2022-11-30] MEDS ORDERED: FAMOTIDINE 20MG/2ML VIAL IV SCH (09:00)
[2022-11-30 12:00] VITALS: BP 133/70
[2022-11-30 16:00] VITALS: BP 119/59
[2022-11-30 20:00] VITALS: BP 115/52
[2022-11-30] MEDS: ATORVASTATIN CALCIUM 10MG TABLET PO SCH (21:37)
[2022-12-01] VITALS: BP 121/59
[2022-12-01 04:00] VITALS: BP 124/54
[2022-12-01 07:27] LABS: BASOPHILS % 0.8 % (0.0-2.0); EOSINOPHILS % 4.7 % (0.0-5.0); HEMATOCRIT. 29.9 % (36.0-48.0); HEMOGLOBIN. 9.8 g/dL (12.0-16.0); LYMPHOCYTES % 40.9 % (20.0-50.0); MEAN CORPUSCULAR HEMOGLOBIN 28.7 pg (28.0-32.0); MEAN CORPUSCULAR VOLUME 86.9 fL (81.0-99.0); MEAN PLATELET VOLUME 8.3 fl (7.4-10.4); MONOCYTES % 10.1 % (2.0-8.0); NEUTROPHILS % 43.5 % (40.0-76.0); PLATELET 193 x1000/uL (130-400); RED BLOOD CELL COUNT 3.44 mill/uL (4.2-5.4); RED CELL DISTRIBUTION WIDTH 15.1 % (11.6-14.6)
[2022-12-01 07:31] LABS: CHLORIDE 110 mEq/L (98-107)
[2022-12-01 08:00] VITALS: BP 140/73
[2022-12-01] MEDS: LEVOTHYROXINE SODIUM 100 MCG/ VIAL IV SCH (08:52)
[2022-12-01] MEDS: FAMOTIDINE 20MG TABLET GT SCH (08:53)
[2022-12-01] MEDS: HYDROCHLOROTHIAZIDE 25MG TABLET PO SCH (08:53)
[2022-12-01] MEDS: LEVETIRACETAM 500MG/5ML CUP GT SCH ×2 (08:53→21:00)
[2022-12-01] MEDS: COLCHICINE 0.6MG TABLET PO SCH (08:53)
[2022-12-01] MEDS: ASPIRIN 81MG TABLET PO SCH (08:53)
[2022-12-01] MEDS: FERROUS SULFATE 325MG TABLET PO SCH ×2 (08:53→16:17)
[2022-12-01] MEDS: DOCUSATE SODIUM SUGAR FREE 100MG/10ML UDC GT SCH (08:53)
[2022-12-01] MEDS: ENOXAPARIN 80MG/0.8ML SYR SUBCUT SCH (08:54)
[2022-12-01] MEDS: MAGNESIUM OXIDE 400MG TABLET PO SCH (08:58)
[2022-12-01] MEDS: LOSARTAN POTASSIUM 50 MG TABLET PO SCH (08:58)
[2022-12-01 12:00] VITALS: BP 135/64
[2022-12-01 16:00] VITALS: BP 130/68
[2022-12-01] MEDS: APIXABAN 5 MG TABLET PO SCH (16:17)
[2022-12-01] MEDS ORDERED: HYDRALAZINE 5 MG in SODIUM CHLORIDE 0.9% 49.75 ML IV PRN (17:30)
[2022-12-01 20:00] VITALS: BP 125/58
[2022-12-01] MEDS: ATORVASTATIN CALCIUM 10MG TABLET PO SCH (21:00)
[2022-12-02] VITALS: BP 112/63
[2022-12-02 04:00] VITALS: BP 124/62
[2022-12-02 05:40] LABS: BASOPHILS % 0.8 % (0.0-2.0); EOSINOPHILS % 4.6 % (0.0-5.0); HEMATOCRIT. 28.8 % (36.0-48.0); HEMOGLOBIN. 9.5 g/dL (12.0-16.0); MEAN CORPUSCULAR HEMOGLOBIN 28.8 pg (28.0-32.0); MEAN CORPUSCULAR VOLUME 87.1 fL (81.0-99.0); MEAN PLATELET VOLUME 8.1 fl (7.4-10.4); MONOCYTES % 9.5 % (2.0-8.0); NEUTROPHILS % 45.1 % (40.0-76.0); PLATELET 184 x1000/uL (130-400); RED BLOOD CELL COUNT 3.31 mill/uL (4.2-5.4); RED CELL DISTRIBUTION WIDTH 14.9 % (11.6-14.6)
[2022-12-02 06:06] LABS: CHLORIDE 108 mEq/L (98-107)
[2022-12-02 08:00] VITALS: BP 120/69
[2022-12-02] MEDS: COLCHICINE 0.6MG TABLET PO SCH (09:00)
[2022-12-02] MEDS: LEVOTHYROXINE SODIUM 100 MCG/ VIAL IV SCH (09:23)
[2022-12-02] MEDS: LEVETIRACETAM 500MG/5ML CUP GT SCH (09:23)
[2022-12-02] MEDS: DOCUSATE SODIUM SUGAR FREE 100MG/10ML UDC GT SCH (09:23)
[2022-12-02] MEDS: APIXABAN 5 MG TABLET PO SCH (09:24)
[2022-12-02] MEDS: LOSARTAN POTASSIUM 50 MG TABLET PO SCH (09:24)
[2022-12-02] MEDS: FERROUS SULFATE 325MG TABLET PO SCH (09:24)
[2022-12-02] MEDS: HYDROCHLOROTHIAZIDE 25MG TABLET PO SCH (09:24)
[2022-12-02] MEDS: FAMOTIDINE 20MG TABLET GT SCH (09:24)
[2022-12-02] MEDS: ASPIRIN 81MG TABLET PO SCH (09:24)
[2022-12-02] MEDS: MAGNESIUM OXIDE 400MG TABLET PO SCH (09:27)
[2022-12-02 12:00] VITALS: BP 117/63
[2022-12-02 15:47] VITALS: BP 141/87
[2022-12-02 16:00] VITALS: BP 127/62
== END 2022-12-02 19:33 | DRG 70 ==
LOC: ER 19:28 → 7EST 21:36 → EDBEDREQ 21:44 → EDBEDREQTM 21:44 → 6EST 12-01 17:18
PROVIDERS: ADMIT Family Medicine Adult Medicine; ATTEND Family Medicine Adult Medicine
PROC: 0DH68UZ Insertion of Feeding Device into Stomach, Via Natural or Artificial Opening Endoscopic (ICD-10-PCS; principal; 2022-11-28)
DX: G93.41 Metabolic encephalopathy (principal); I26.99 Other pulmonary embolism without acute cor pulmonale; G45.9 Transient cerebral ischemic attack, unspecified; I82.401 Acute embolism and thrombosis of unspecified deep veins of right lower extremity; I69.354 Hemiplegia and hemiparesis following cerebral infarction affecting left non-dominant side; E44.1 Mild protein-calorie malnutrition; E04.9 Nontoxic goiter, unspecified; D64.9 Anemia, unspecified; E11.9 Type 2 diabetes mellitus without complications; R62.7 Adult failure to thrive; D73.89 Other diseases of spleen; E78.00 Pure hypercholesterolemia, unspecified; I25.10 Atherosclerotic heart disease of native coronary artery without angina pectoris; M10.9 Gout, unspecified; K44.9 Diaphragmatic hernia without obstruction or gangrene; K29.70 Gastritis, unspecified, without bleeding; R13.12 Dysphagia, oropharyngeal phase; E87.6 Hypokalemia; K86.9 Disease of pancreas, unspecified; F03.90 Unspecified dementia, unspecified severity, without behavioral disturbance, psychotic disturbance, mood disturbance, and anxiety; I10 Essential (primary) hypertension; E66.01 Morbid (severe) obesity due to excess calories; J45.909 Unspecified asthma, uncomplicated; E89.0 Postprocedural hypothyroidism; I69.120 Aphasia following nontraumatic intracerebral hemorrhage; Z68.38 Body mass index [BMI] 38.0-38.9, adult; Z79.82 Long term (current) use of aspirin; Z79.4 Long term (current) use of insulin
CPT/HCPCS: 36415; 70496; 70498; 70551; 71045; 71275; 80048; 80053; 80061; 80076; 80320; 82105; 82378; 82962; 83615; 83735; 83880; 84443; 84484; 84550; 85025; 85027; 86301; 86304; 87426; 92610; 93005; 93308; 93970; 97162; 97164; 97530; 99291; A6261; C1893; J0360; J0690; J1650; J1953; J2370; J2704; J3480; J3490; J7042; J7050; J7060; Q9967; G0480